=== PATIENT | male | born 1995 | race Caucasian/White ===

== ENCOUNTER 2025-08-12 19:17 | Emergency (ER) | payer SELFPAY ==
[~2025-08-12] VITALS: Ht 177.8 cm; Wt 71.8 kg
[~2025-08-12 19:17] MED LIST: DIPH-423 PO; FAMO-1 PO; PRED20TA PO
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
[2025-08-12 19:57] VITALS: BP 151/86; PULSE 74; RESP 16; TEMP 97.6; O2SAT 99
== END 2025-08-12 19:59 ==
LOC: ER 19:17
DX: Z00.00 Encounter for general adult medical examination without abnormal findings (principal); Z91.013 Allergy to seafood; Z88.8 Allergy status to other drugs, medicaments and biological substances; Z79.899 Other long term (current) drug therapy
CPT/HCPCS: 99283